=== PATIENT | male | born 1950 | race Caucasian/White ===

== ENCOUNTER 2021-11-06 18:39 | Day surgery (SDCO) | payer MEDICARE ==
[~2021-11-06] VITALS: Ht 182.9 cm; Wt 91.8 kg
[2021-11-06 20:02] LABS: BASOPHIL 0.5 % (0-2); HCT 37.8 % (42.0-52.0); HGB 12.6 g/dl (13.2-18.0); LYMPHOCYTE 32.7 % (15-48); MCH 31.9 pg (25.0-31.0); MCHC 33.3 g/dL (32.0-36.0); MCV 95.7 fL (78.0-100.0); MONOCYTE 10.2 % (0-12); NEUTROPHIL 54.2 % (41-80); NRBC 0; PLT 211 K/uL (150-400); RBC 3.95 M/uL (4.70-6.00); RDW 12.7 % (11.5-14.0); WBC 8.1 K/uL (4.0-10.5)
[2021-11-06 20:28] LABS: INR 1.01 (0.9-1.2); PROTHROMBIN TIME 12.7 SECONDS (11.8-13.4); PTT 26.1 SECONDS (24.4-34.7)
[2021-11-06 20:43] LABS: BILIRUBIN - TOTAL 0.2 mg/dL (0.2-1.0); BUN/CREAT RATIO (CALC) 23.8 RATIO; CREATININE 1.22 mg/dL (0.67-1.17); POTASSIUM 4.3 mmol/L (3.5-5.1)
[2021-11-06 21:09] LABS: CORONAVIRUS 2019 SARS-COV-2 NEGATIVE (NEGATIVE); INFLUENZA A NAA NEGATIVE (NEGATIVE)
[2021-11-07 00:32] LABS: BILIRUBIN NEGATIVE (NEGATIVE); BLOOD NEGATIVE Ery/uL (NEGATIVE); CLARITY CLEAR (CLEAR); COLOR YELLOW (YELLOW); GLUCOSE (U) NORMAL (NORMAL); LEUKOCYTES NEGATIVE Leu/uL (NEGATIVE); NITRITE NEGATIVE (NEGATIVE); PROTEIN NEGATIVE (NEGATIVE); SPECIFIC GRAVITY 1.025 (1.001-1.030); UROBILINOGEN 0.2 mg/dL (0.2-1.0)
--- NOTE | 2021-11-07 06:33 | NUR ---
PT IS POOR HISTORIAN. PER REPORT THIS NURSE WAS TOLD THAT PT IS CIWA/ETOH & THAT PT HAS DM11. PT DENIES BOTH. OBVIOUS MEMORY DEFICIT.
[2021-11-07 07:14] LABS: IRON % SATURATION 32.2 %SAT (20-50)
[2021-11-07 07:42] LABS: BUN/CREAT RATIO (CALC) 22.4 RATIO; CREATININE 1.16 mg/dL (0.67-1.17); FOLIC ACID (SERUM) 39.5 ng/mL (8.6-58.9); MAGNESIUM 1.8 mg/dL (1.8-2.4); PHOSPHORUS 3.4 mg/dL (2.6-4.7)
--- NOTE | 2021-11-07 13:29 | NUR ---
TC TO SON, MUSHTAQ JUDD AT [phone]. HE ADVISED TO SPEAK WITH HIS BROTHER'S GIRLFRIEND, ASHLEY, . HE STATES THAT SHE IS THE ONE WHO TAKES CARE OF HIS FATHER. VINCE CONTACTED ME AND ADVISED THAT PT. HAS A WC, 11/29 AND SC. HE NEEDS A ROLLING WALKER THE ONE HE HAS IS BORROWED. HE IS CURRENT WITH [facility]. ADVISED THAT HE HAD PT/OT AND THEY WANTED ST. ADVISED DR. ARREDONDO THAT PT. WILL NEED A NEW ORDER FOR PT/OT AND SPEECH AND NURSING.
[2021-11-07] MEDS ORDERED: PRILOSEC20 MG PO (18:34)
[2021-11-07] MEDS ORDERED: RISPERDAL 1MG TA1 MG PO (18:34)
[2021-11-07] MEDS ORDERED: METFORMIN HCL500 MG PO (18:38)
[2021-11-07] MEDS ORDERED: CRESTOR10 M1 PO (18:38)
[2021-11-07] MEDS ORDERED: HCTZ25 MG PO (18:40)
[2021-11-07] MEDS ORDERED: CRANBERRY CONC1 EACH PO (18:43)
[2021-11-08 07:02] LABS: BASOPHIL 0.5 % (0-2); EOSINOPHIL 2.5 % (0-7); HCT 34.6 % (42.0-52.0); HGB 11.7 g/dl (13.2-18.0); LYMPHOCYTE 33.9 % (15-48); MCH 31.9 pg (25.0-31.0); MCHC 33.8 g/dL (32.0-36.0); MCV 94.3 fL (78.0-100.0); MONOCYTE 8.8 % (0-12); MPV 10.1 fL (6.0-9.5); NRBC 0; PLT 193 K/uL (150-400); RBC 3.67 M/uL (4.70-6.00); RDW 12.5 % (11.5-14.0); WBC 8.8 K/uL (4.0-10.5)
[2021-11-08 07:12] LABS: ALBUMIN 3.2 g/dL (3.4-5.0); BILIRUBIN - TOTAL 0.3 mg/dL (0.2-1.0); BUN/CREAT RATIO (CALC) 20.7 RATIO; CREATININE 1.16 mg/dL (0.67-1.17); GLOBULIN (CALCULATION) 3.1 g/dL; TOTAL PROTEIN 6.3 g/dL (6.4-8.2)
--- NOTE | 2021-11-08 14:47 | NUR ---
11/08/21 Joan, caregiver, had questions re: patient's safety at home. With Myrtle's permission, patient's functional abilities per therpay were reviewed at bedside.
== END 2021-11-08 15:53 | disposition home health service (06) ==
LOC: FER 18:39 → FMS 11-07 05:28
PROVIDERS: Internal Medicine; Nurse Practitioner; ADMIT Family Medicine
DX: I95.9 Hypotension, unspecified (principal); E11.22 Type 2 diabetes mellitus with diabetic chronic kidney disease; N18.30 Chronic kidney disease, stage 3 unspecified; D63.1 Anemia in chronic kidney disease; E86.0 Dehydration; N17.9 Acute kidney failure, unspecified; R53.1 Weakness; F03.90 Unspecified dementia, unspecified severity, without behavioral disturbance, psychotic disturbance, mood disturbance, and anxiety; K59.00 Constipation, unspecified; Z86.16 Personal history of COVID-19; Z87.820 Personal history of traumatic brain injury; Z79.84 Long term (current) use of oral hypoglycemic drugs; Z79.899 Other long term (current) drug therapy; Z90.5 Acquired absence of kidney
CPT/HCPCS: 36415; 70450; 71045; 71250; 80048; 80053; 81003; 82607; 82728; 82746; 83036; 83540; 83550; 83735; 84100; 84484; 85025; 85610; 85730; 92523; 93005; 94010; 97162; 97166; 97530-GP; 97535; G0378; J1650; J7120; U0002